=== PATIENT | female | born 1970 | race Caucasian/White ===

== ENCOUNTER 2018-01-05 05:44 | Inpatient (IN) | payer OTHER ==
[2018-01-05] MEDS ORDERED: ceFAZolin 2 GM/DEXTROSE 100 ML IV ONE (05:59)
[2018-01-05] MEDS ORDERED: ACETAMINOPHEN 500 MG TAB PO ONE (05:59)
[2018-01-05] MEDS ORDERED: GABAPENTIN 300 MG CAP PO ONE (05:59)
[2018-01-05] MEDS ORDERED: Rizatriptan Benzoate [Maxalt Mlt] 10 MG PO PRN (06:00)
[2018-01-05] MEDS ORDERED: LR 1,000 ML IV ONE (06:00)
--- NOTE | 2018-01-05 06:19 | PDHPUP ---
History & Physical Update H&P update statement: This history and physical update is based on an assessment of the patient which was completed after admission or registration (within 24 hours), but prior to the surgery/procedure. H&P update: H&P reviewed & patient examined, no change in patient's condition since H&P completed
[2018-01-05] MEDS ORDERED: BUPIVACAINE 0.25% 30 ML SDV ONE ×2 (07:04→07:06)
[2018-01-05] MEDS ORDERED: EPINEPHrine 1 MG/ML INJ ONE (07:06)
[2018-01-05] MEDS ORDERED: CHLORHEXIDINE GLUC HIBICLENS 118 ML BTL TP ONE (07:06)
[2018-01-05] MEDS ORDERED: THROMBIN (BOVINE) 5,000 UNIT VIAL TP ONE (07:06)
[2018-01-05] MEDS ORDERED: BACITRACIN 50,000 UNITS/10 ML SYR IRR ONE (07:07)
[2018-01-05] MEDS ORDERED: POLYETHYLENE GLYCOL 3350 17 GM PKT PO PRN (07:23)
[2018-01-05] MEDS ORDERED: LACTULOSE 20 GM/30 ML UDCUP PO PRN (07:23)
[2018-01-05] MEDS ORDERED: ONDANSETRON 4 MG/2 ML VIAL IVP PRN ×2 (07:23→11:32)
[2018-01-05] MEDS ORDERED: morphINE PCA 30 MG/30 ML PCA IV PRN (07:23)
[2018-01-05] MEDS ORDERED: MAGNESIUM HYDROXIDE 30 ML UDCUP PO PRN (07:23)
[2018-01-05] MEDS ORDERED: BISACODYL 10 MG SUPP PR PRN (07:23)
[2018-01-05] MEDS ORDERED: NALOXONE HCL 0.4 MG/ML INJ IVP PRN ×2 (07:23→11:32)
[2018-01-05] MEDS ORDERED: diphenhydrAMINE 25 MG CAP PO PRN (07:23)
[2018-01-05] MEDS ORDERED: ONDANSETRON DISINTEGRATING 4 MG TAB PO PRN (07:23)
[2018-01-05] MEDS ORDERED: MIDAZOLAM 2 MG/2 ML VIAL ONE (07:23)
[2018-01-05] MEDS ORDERED: MIDAZOLAM 2 MG/2 ML VIAL IVP ONE (07:24)
--- NOTE | 2018-01-05 07:24 | PDANEPAE ---
ANE History of Present Illness bilateral leg pain and back pain ANE Past Medical History - Cardiovascular History Hx Hypertension: No Hx Arrhythmias: No Hx Chest Pain: No Hx Coronary Artery / Peripheral Vascular Disease: No Hx CHF / Valvular Disease: No Hx Palpitations: No - Pulmonary History Hx COPD: No Hx Asthma/Reactive Airway Disease: No Hx Recent Upper Respiratory Infection: No Hx Oxygen in Use at Home: No Hx Sleep Apnea: Yes Sleep Apnea Screening Result - Last Documented: Positive - Neurologic History Hx Cerebrovascular Accident: No Hx Seizures: No Hx Dementia: No Neurologic History Comment: MIGRAINES - Endocrine History Hx Diabetes: No - Renal History Hx Renal Disorders: No Renal History Comment: FREQUENCY - Liver History Hx Hepatic Disorders: No - Neurological & Psychiatric Hx Hx Neurological and Psychiatric Disorders: No Neurological / Psychiatric History Comment: ANXIETY - Cancer History Hx Cancer: No - Congenital Disorder History Hx Congenital Disorders: No - GI History Hx Gastrointestinal Disorders: No - Other Health History Other Health History: HX ANEMIA - TAKES IRON - Chronic Pain History Chronic Pain: Yes (BACK PAIN & LEG PAIN) - Surgical History Prior Surgeries: DISCECTOMY. SHOULDER R. KNEE L SCOPE. CYST OVARY ANE Review of Systems Review of systems is: negative Review of Systems: - Exercise capacity Exercise capacity: >=4 METS METS (RN): 5 METS ANE Patient History - Allergies Allergies/Adverse Reactions: Sulfa (Sulfonamide Antibiotics) Allergy (Severe, Verified 12/29/17 15:01) open blisters all over body and mouth - Home Medications Home Medications: ARIPiprazole [Abilify 2 mg (*)] 1 mg PO HS 12/29/17 [Last Taken Unknown] Diazepam [Valium 2 MG (*)] 2 - 4 mg PO HS PRN 12/29/17 [Last Taken 01/04/18] Herbals/Supplements -Info Only 1 ea PO AD 12/29/17 [Last Taken 1 Week Ago ~12/29] Hydrocodone/Acetaminophen [Vicodin 5-300 mg Tablet] 1 each PO Q4 PRN 12/29/17 [ Last Taken 01/02/18] Mirtazapine [Remeron] 15 mg PO HS 12/29/17 [Last Taken 01/04/18] Multivitamins [Multivitamin (*)] 1 each PO DAILY 12/29/17 [Last Taken 1 Week Ago ~12/29/17] Rizatriptan Benzoate [[employer]] 10 mg PO DAILY PRN 12/29/17 [Last Taken 1 Week Ago ~12/29/17] - NPO status NPO Status: no food or drink >8 hours NPO Since - Liquids (Date): 01/05/18 NPO Since - Liquids (Time): 04:30 (water) NPO Since - Solids (Date): 01/04/18 NPO Since - Solids (Time): 20:00 - Anes Hx Anes Hx: no prior problems - Smoking Hx Smoking Status: Never smoked - Alcohol Use Alcohol Use: None - Family Anes Hx Family Anes Hx: none Family Hx Anesthesia Complications: NEG ANE Labs/Vital Signs - Vital Signs Blood Pressure: 102/62 Heart Rate: 60 Respiratory Rate: 18 O2 Sat (%): 97 Height: 165.1 cm Weight: 54.431 kg ANE Physical Exam - Airway Neck exam: FROM Mallampati Score: Class 2 Mouth exam: normal dental/mouth exam - Pulmonary Pulmonary: no respiratory distress - Cardiovascular Cardiovascular: regular rate and rhythym - ASA Status ASA Status: II ANE Anesthesia Plan Anesthesia Plan: general endotracheal anesthesia
[2018-01-05] MEDS ORDERED: NS 1,000 ML IV SCH (07:30)
[2018-01-05] MEDS ORDERED: LIDOCAINE 2% 2 ML INJ ONE (07:34)
[2018-01-05] MEDS ORDERED: REMIFENTANIL HCL 1 MG VIAL ONE (07:34)
[2018-01-05] MEDS ORDERED: ROCURONIUM 50 MG/5 ML VIAL ONE (07:34)
[2018-01-05] MEDS ORDERED: fentaNYL 100 MCG/2 ML INJ ONE ×3 (07:35→11:33)
[2018-01-05] MEDS ORDERED: PROPOFOL/EMULSION 500 MG/50 ML BOTTLE IV ONE (07:35)
[2018-01-05] MEDS ORDERED: PROPOFOL 200 MG/20 ML VIAL ONE (07:35)
[2018-01-05] MEDS ORDERED: DEXAMETHASONE 4 MG/ML VIAL ONE ×2 (08:07)
[2018-01-05] MEDS ORDERED: PHENYLEPHRINE 10 MG/ML SDV ONE (08:43)
--- NOTE | 2018-01-05 10:38 | PDMN ---
Medical Necessity [place] [facility] [place] Fusion: 47 y/o s/p L4/5 transformainal lumbar interbody fusion, lumbar laminectomy. CPT 58639, IP only.
[2018-01-05] MEDS ORDERED: ONDANSETRON 4 MG/2 ML VIAL ONE (10:41)
[2018-01-05] MEDS ORDERED: PROMETHAZINE HCL 25 MG/ML INJ IVP PRN (11:32)
[2018-01-05] MEDS ORDERED: ALBUTEROL 3 ML DEYVIAL IH PRN (11:32)
[2018-01-05] MEDS ORDERED: oxyCODONE IR 5 MG TAB PO PRN (11:32)
[2018-01-05] MEDS ORDERED: HYDROCODONE/APAP 5/325 TAB PO PRN (11:32)
--- NOTE | 2018-01-05 11:34 | POSTANESTH ---
Post Anesthetic Evaluation Cardiovascular Status: Normal, Stable Respiratory Status: Normal, Stable Level of Consciousness/Mental Status: Can Participate in Eval Pain Control: Adequate, Prn Tx Ordered Nausea/Vomiting Control: Adequate, Prn Tx Ordered Complications Possibly Related to Anesthesia: None Noted
[2018-01-05] MEDS: fentaNYL 100 MCG/2 ML INJ IVP PRN ×2 (11:36→11:47)
--- NOTE | 2018-01-05 11:48 | POSTOPPROG ---
Post Op Note Date of Operation: 01/05/18 Surgeon: Anayeli Ceja Custom Van Converter: [place] Anesthesiologist: Travis Anesthesia: GET(General Endotracheal), Local (Specify) Pre-op Diagnosis: L4/5 stenosis/lumbar radiculopathy Post-op Diagnosis: s/p L 4/5 TLIF Indication: lumbar stenosis Procedure: TLIF L4/5 Findings: none Inf/Abcess present in the surg proc area at time of surgery?: No Depth: Deep Incisional (Fascial) EBL: 100-500 Total fluids administered: see anesthesia record Complications: none Drains: Gentry Jones
[2018-01-05] MEDS ORDERED: DIAZEPAM 5 MG/ML 1 ML SYR ONE (11:50)
[2018-01-05] MEDS ORDERED: HYDROmorphONE/DILAUDID 1 MG/ML INJ ONE ×3 (11:50→15:05)
--- NOTE | 2018-01-05 11:50 | SOAPPROG ---
SOAP Progress Note Assessment/Plan: Post Op Visit: S: Awake and alert. NAD. Pt with expected lower back pain O: AFVSS/PERRLA/EOMI no droop CN 2-12 grossly intact +lt touch 5/5 BUE/BLE = CDI LOVE in place A/P: 47 yo female that is s/p TLIF at L4/5 -order in place -PT/OT ordered -brace when out of bed -post op xrays pending in am Objective: Vital Signs Temp Pulse Resp BP Pulse Ox 37.1 C 60 16 101/59 L 100 01/05/18 06:03 01/05/18 07:24 01/05/18 11:41 01/05/18 11:41 01/05/18 11:41 ICD10 Worksheet Patient Problems: Problems Problem Status Onset Lumbar radicular pain Acute Lumbar stenosis Acute - ICD10 Problem Qualifiers (1) Lumbar stenosis (2) Lumbar radicular pain
[2018-01-05] MEDS: HYDROmorphONE/DILAUDID 1 MG/ML INJ IVP PRN ×5 (11:53→15:08)
--- NOTE | 2018-01-05 11:55 | GOP ---
[f rep st] OPERATIVE REPORT DATE OF OPERATION: 01/05/2018 SURGEON: Veronica Ceja MD NEUROSURGEON: Micha Ceja MD. CNP: Gaurav Rivera PA-C. PREOPERATIVE DIAGNOSIS: 1. Lumbar spondylolisthesis, L4-5. 2. Lumbar degenerative disk disease. 3. Failed back and postlaminectomy syndrome, L4-5. 4. Bilateral lumbosacral radiculopathy. 5. Severe right neural foraminal stenosis and lateral recess stenosis. 6. Mild left lateral recess stenosis. POSTOPERATIVE DIAGNOSIS: 1. Lumbar spondylolisthesis, L4-5. 2. Lumbar degenerative disk disease. 3. Failed back and postlaminectomy syndrome, L4-5. 4. Bilateral lumbosacral radiculopathy. 5. Severe right neural foraminal stenosis and lateral recess stenosis. 6. Mild left lateral recess stenosis. PROCEDURE PERFORMED: 1. Posterolateral and intervertebral arthrodesis, L4-5, with right complete hemilaminectomy, foramin otomy, and right-sided decompression (05560). 2. Placement of biomechanical intervertebral device at L4-5 (27671). 3. Same-incision bone graft harvest. 4. Posterior nonsegmental instrumentation across a single interspace, L4-5. 5. Posterior spinal stereotaxy. 6. Microscope. FINDINGS: Consistent with MRI. SPECIMENS: There were none. ESTIMATED BLOOD LOSS: 100 cc. INDICATIONS: The patient is a middle-aged female, who had a prior history of a left hemilaminotomy a nd left-sided decompression without complication, who had spondylolisthesis at L4-5 and bilateral sym ptoms. They would change from side to side. Some days the right was worse, and some days the left, but she had bilateral symptoms, and her MRI demonstrated no severe compression of the nerve on the le ft-hand side. There was some mild left lateral recess stenosis due to the spondylolisthesis, and, on the right side, there was a separate sesamoid or floating piece of bone in the neural foramen, compr essing the exiting L4 root, as well as severe right lateral recess stenosis for the right L4-5 nerve root. She also had terrible degenerative disk disease, and I suggested a single-level fusion. The r isks of CSF leak, nerve injury, adjacent segment disease, and screw and hardware malposition and malf unction were discussed. She knew there was a chance surgery would fail to eliminate her pain, but th ere was a high probability of success. She knew the recovery would take some period of time before s he had recovered from the surgery, and she was ready to proceed. DESCRIPTION OF PROCEDURE: The patient was taken to the operating room and placed in supine position. General anesthesia was begun. She was flipped prone onto the Gentry table. Care was taken to pad all points of contact. Her back was sterilely prepped and draped in the usual fashion. A localizin g x-ray was taken. She had a prior left-sided paramedian incision that measured about 2 cm. For thi s surgery, we planned a 4.5 cm midline incision. We anesthetized the paraspinal tissues with 0.25% M arcaine with epinephrine. I made a midline incision that was 4.5 cm and performed a subperiosteal di ssection and a subfascial dissection down the L4-5 lamina and spinous process. There was a left-side d laminotomy of L4. Indeed, there was prolapse of her dura through the laminotomy defect. There was no evidence of any prior surgical complication. We shot localizing x-rays and denuded the bilateral hypertrophic facet joints at L4-5 and marked our pedicle screw entry zone for the L4 and L5 pedicles . We attached the Stealth reference frame, and, using frameless Stealth stereotaxy, placed pedicle s crews bilaterally at L4 and L5. There was excellent bony purchase. They all stimulated at acceptabl e levels, and they were all well seated within the pedicle, without breach of the pedicle itself or t he surrounding disk spaces. We were very happy with the 3D imaging we obtained of the hardware. We took 35 mm rods, distracted between L4 and L5, and got reduction of her spondylolisthesis at that lev el, and this really dramatically opened up both of the neural foramina at L4-5. We then removed the soft-tissue of the bone at L4-5 and harvested the inferior L4 spinous process for autologous grafting purposes. We decorticated the left-sided L4-5 facet joint to create posterolateral arthrodesis ther e. We performed a right hemilaminectomy of L4 and a complete facetectomy of L4-5, and decompressed t he right lateral recess. We harvested this bone for autologous grafting purposes, and, under the martín roscope, we completely decompressed the right lateral recess and the right side of the thecal sac. W e identified the exiting L4 nerve root and followed it out laterally into its neural foramen, and the re was a separate hunk of bone coming off the SAP of L5 on the right-hand side, compressing the L4 ne rve root and its neural foramen, consistent with her preoperative CT scan and MRI. This was totally removed. The L4 nerve was skeletonized throughout its foramen. We then swept the L5 nerve root medi ally, coagulated the epidural veins in this location, incised the L4-5 disk, and removed the L4-5 dis k in its entirety. We roughened the subchondral bone to create arthrodesis, and placed bone autograf t and BMP into the space. We sized the space and chose a 7 x 23 mm intervertebral device that was ex pandable, and it was inserted with fluoroscopic guidance and then expanded. We had nice lordosis of the segment, and I was happy with the positioning of the device. We then ensured there was perfect b ilateral decortication of all of the remaining bone to create arthrodesis at L4-5 and then placed BMP and bony autograft posterolaterally bilaterally. All of the screws had been torqued to company spec ification. We then placed a small subfascial drain and closed the incision in multiple layers using Vicryl sutures. Steri-Strips were applied to the skin. The patient was reversed from anesthesia, ex tubated, and transferred to the recovery room in stable condition. There were no complications. COMPLICATIONS: None. INSTRUMENTATION USED: [employer] Solera pedicle screw instrumentation, with a 4.75 mm verónica, and a Localisto ronic 7 x 23 mm Elevate cage. We used 2.0 mg of BMP. COMPLICATIONS: None. /[id number]/MODL
[2018-01-05] MEDS: DIAZEPAM 5 MG/ML 1 ML SYR IVP PRN ×2 (12:03→12:21)
[2018-01-05] MEDS ORDERED: HYDROCODONE/APAP 5/325 TAB ONE (12:52)
[2018-01-05] MEDS: FAMOTIDINE 20 MG TAB PO SCH ×2 (12:58→21:46)
[2018-01-05] MEDS ORDERED: HYDROmorphONE/DILAUDID 2 MG/ML INJ ONE (13:56)
[2018-01-05] MEDS ORDERED: ACETAMINOPHEN 500 MG TAB PO SCH (14:00)
[2018-01-05] MEDS: SENNOSIDES/DOCUSATE SODIUM TAB PO SCH ×2 (15:09→21:46)
[2018-01-05] MEDS ORDERED: METHOCARBAMOL 750 MG TAB ONE (15:36)
[2018-01-05] MEDS: METHOCARBAMOL 750 MG TAB PO PRN ×2 (15:37→21:47)
[2018-01-05] MEDS: GABAPENTIN 300 MG CAP PO SCH ×2 (16:07→21:47)
[2018-01-05] MEDS: ceFAZolin 2 GM/DEXTROSE 100 ML IV SCH (16:12)
[2018-01-05] MEDS: HYDROCODONE/APAP 5/325 TAB PO PRN ×2 (17:34→19:07)
[2018-01-05] MEDS ORDERED: MIRTAZAPINE 15 MG TAB PO SCH (21:00)
[2018-01-05] MEDS ORDERED: ARIPiprazole 2 MG TAB PO SCH (21:00)
[2018-01-05] MEDS: oxyCODONE IR 5 MG TAB PO PRN (21:46)
[2018-01-06] MEDS: ceFAZolin 2 GM/DEXTROSE 100 ML IV SCH (00:20)
[2018-01-06] MEDS: oxyCODONE IR 5 MG TAB PO PRN ×4 (02:44→15:07)
[2018-01-06] MEDS: GABAPENTIN 300 MG CAP PO SCH ×2 (06:11→14:13)
--- NOTE | 2018-01-06 08:25 | NEUSURGPN ---
Date of Surgery: 01/05/18 Post Op Day: 1 Assessment/Plan: 47 yo female that is s/p TLIF at L4/5 POD#1 Plan: -pain management, currently well controlled with Oxycodone and Robaxin -Pre operative leg pain improved -PT/OT -Post op xrays pending -Remove LOVE -Patient may dc home later today if pain remains controlled, after xrays and pending therapies recommendations Patient will be seen by Dr Ceja as well Please call neurosurgery with any questions/concerns Subjective: Doing well this am, pain controlled Objective: AxO x3 MCMANUS x4 5/5 BLE Sensation intact to light touch BLE Dressing CDI with quarter size drainage on proximal end LOVE patent Neuro Check Frequency: per routine Urinary Catheter in Place: No Catheter Insertion Date: 01/05/18 - Physician Discussed Patient with : Marcial Patient Seen by : Marcial Neurosurgery Physical Exam - Vitals, I&O, Labs I and O 01/05/18 01/06/18 01/07/18 05:59 05:59 05:59 Intake Total 2604 Output Total 3070 Balance -466 Weight 54.431 kg Intake: Oral (ml) 120 IV Intake (ml) 1700 IV Infused (ml) 784 Ns 1,000 ml @ 75 mls/hr 684 IV CONT LC Rx#: [id number] ceFAZolin 2 GM/DEXTROSE 100 100 ml @ 200 mls/hr IV Q8H LC Rx#:[id number] Output: Urine (ml) 2850 Catheter 2850 Estimated Blood Loss (ml) 10 LOVE Drain Output (ml) 210 #1 Right Posterior Back 210 Gentry Jones Other: Number of Voids Catheter 1 Vital Signs Temp Pulse Resp BP Pulse Ox 37.2 C 66 16 98/62 L 98 01/06/18 03:58 01/06/18 03:58 01/06/18 03:58 01/06/18 03:58 01/06/18 03:58 ICD10 Worksheet Patient Problems: Problems Problem Status Onset Lumbar radicular pain Acute Lumbar stenosis Acute
[2018-01-06] MEDS: FAMOTIDINE 20 MG TAB PO SCH (09:02)
[2018-01-06] MEDS: SENNOSIDES/DOCUSATE SODIUM TAB PO SCH (09:03)
[2018-01-06] MEDS: METHOCARBAMOL 750 MG TAB PO PRN ×2 (09:03→17:47)
--- NOTE | 2018-01-06 11:37 | ASMTLACE ---
VIMAL Length of stay for Answers: 1 day current admission Acuity / Level of Answers: Yes Care: Did the patient have an inpatient admission? # of Emergency department Answers: 0 visits in the last 6 months Social determinants Answers: Mental health diagnosis (anxiety, depression, pers onality disorders, etc.) Score: 7 Date Signed: 01/06/2018 10:39 AM Electronically Signed By:Laura Chauhan RN
--- NOTE | 2018-01-06 11:38 | ASMTCMCOM ---
CM Note CM Note Notes: Patient is POD #1 TLIF at L4/5. She is doing well and may discharge today. Patient lives with her in [place] and will stay for a few days in [place] before driving home. PT/OT have cleared her for home. CM available if plan changes. Date Signed: 01/06/2018 10:41 AM Electronically Signed By:Laura Chauhan RN
--- NOTE | 2018-01-06 12:54 | PDFACE2FAC ---
Face to Face Encounter 1. I certify that this patient is under my care and that I, or a nurse practitioner or physician's assistant brand manager working with me, had a lqnu-xj-enic encounter that meets the physician ujwq-ze-ymbd encounter requirements with this patient on 01/06/18. 2. I certify that based on my findings, the following services are medically necessary home health services: Home O2 3. The medical condition and clinical findings that support the need for specialized skills, knowledge and judgement of the above services are: [Home O2] 4. I certify this patient is homebound* because [the patient's condition restricts their ability to leave their home except with the assistance of another individual or the aid of a supportive device.] Yes I certify that this patient is confined to his/her home and needs intermittent [place] [facility] care, physical and/or speech therapy. This patient is under my care and I have authorized home health services. * Homebound is defined by Medicare as follows: absences from home require considerable and tacking effort and or for medical reasons or evangelical services or are infrequent or of short duration when for other reasons*.
[2018-01-06 15:16] VITALS: BP 117/77
[2018-01-08] MEDS ORDERED: ENOXAPARIN 40 MG/0.4 ML SYR SC SCH (09:00)
--- NOTE | 2018-01-10 20:43 | GDS ---
PREOPERATIVE DIAGNOSES: Lumbar spondylolisthesis L4-5, lumbar degenerative disk disease, failed back postlaminectomy syndrome L4-5, bilateral lumbosacral radiculopathy, severe right neuroforaminal sten osis and lateral recess stenosis, mild left lateral recess stenosis. OPERATION/PROCEDURE: Posterior intervertebral arthrodesis at L4-5, with a right complete hemilaminec montrell, foraminotomy, and right-sided decompression. Placement of biomechanical intervertebral device at L4-5, same incision. Bone graft harvest. Posterior nonsegmental instrumentation across the singl e interspace at L4-5. Posterior spinal stereotactic with use of microscope. This occurred with Dr. Veronica Ceja at [facility], 01/05/2018. HOSPITAL COURSE: This is a middle-aged female with a prior history of left hemilaminotomy and a left -sided decompression without complication. She had spondylolisthesis at L4-5 and bilateral symptoms. They would change from side to side. Some days the right was worse, some days on the left, but she had bilateral symptoms. MRI demonstrated no severe compression of the nerve on the left-hand side. There was some mild left lateral recess stenosis due to spondylolisthesis on the right side, and a s eparate sesamoid or floating piece of bone in the neuroforamen. This compressed the exiting L4 nerve root. She had severe right lateral recess stenosis at the right L4-5 nerve root. She also had terr ible degenerative disk disease. Suggestion for single-level fusion was given the patient. She under stood these risks and wished to proceed. She underwent the above-mentioned procedure and she tolerated it well. She was admitted postoperativ shawn. Had x-rays on postoperative day #1, 01/06/2018, which showed a well-seated posterior fusion fro m L4-L5, with no complications. She worked with PT and OT, and was cleared for discharge. X-rays were reviewed with both the patient as well as Dr. Ceja. Her pain management was doing well with oxycodone and Robaxin. Her preoperative leg pain had improved, and she was quite happy even po stoperative day #1 with the results. She did have some expected lower back pain. A LOVE was placed, a nd then subsequently removed. She was cleared for discharge. Please see med rec form. CONSULTS: None. COMPLICATIONS: None. DISCHARGE CONDITION: Stable and improved. DISCHARGE INSTRUCTIONS: Standard discharge instructions were given to the patient following instrume nted lumbar fusion. The patient was instructed on worsening symptoms, new pain, weakness, numbness, tingling, loss of bowel or bladder control, problems with gait or balance. All questions were answer ed. She will wear her brace as directed. We talked about avoiding of any bending, twisting, or lift ing. She will follow up with us likely in 2 weeks for a recheck, and then at 2 months, 3-6 months, 9 months to a year and a half, and 2 years, with x-rays as clinically appropriate to ensure radiograph ic fusion. The patient understands and agrees. /[id number]/MODL
== END 2018-01-06 18:28 | disposition home or self-care (01) | DRG 460 ==
LOC: F3N 05:44 → EDBD 07:30 → F3N 15:56
PROVIDERS: ADMIT Neurological Surgery; ATTEND Neurological Surgery
PROC: 3E0U0GB Introduction of Recombinant Bone Morphogenetic Protein into Joints, Open Approach (ICD-10-PCS; principal; 2018-01-05 07:33)
PROC: 0SG00AJ Fusion of Lumbar Vertebral Joint with Interbody Fusion Device, Posterior Approach, Anterior Column, Open Approach (ICD-10-PCS; principal; 2018-01-05 07:33)
PROC: 01NB0ZZ Release Lumbar Nerve, Open Approach (ICD-10-PCS; principal; 2018-01-05 07:33)
PROC: 0ST20ZZ Resection of Lumbar Vertebral Disc, Open Approach (ICD-10-PCS; principal; 2018-01-05 07:33)
DX: M43.16 Spondylolisthesis, lumbar region (principal); M51.16 Intervertebral disc disorders with radiculopathy, lumbar region
CPT/HCPCS: 97116-GP; 97161-GP; 97166-GO; C1713; J0171; J0690; J1100; J1170; J2250; J2370; J2405; J2704; J3010; J3360